=== PATIENT | male | born 1985 | race Caucasian/White ===

== ENCOUNTER 2018-11-17 04:52 | Emergency (ER) | payer OTHER ==
[~2018-11-17] VITALS: Ht 172.7 cm; Wt 63.5 kg
--- NOTE | 2018-11-17 05:05 | NUR ---
BIBSELF FROM HOME. AAOX4. BREATHING EVEN AND UNLABORED. PT IS ANXIOUS. AMBULATORY. C/O RACING HEART RATE FEELING OF PALPITATION. DENIES CP. -N/V/D. PT REPORTS OF TAKING XANAX.05 MG PO 30MIN AGO PRIOR TO ARRIVAL. PT TO ER BED 9. MD AT BEDSIDE FOR EVAL.
[2018-11-17] MEDS ORDERED: LORAZEPAM 1 MG TABLET ONE (05:27)
[2018-11-17] MEDS ORDERED: LORAZEPAM 1 MG TABLET PO ONE ×2 (05:30→06:00)
[2018-11-17 05:41] VITALS: BP 121/84
== END 2018-11-17 05:42 | disposition home or self-care (01) ==
LOC: ER 04:55
DX: F41.9 Anxiety disorder, unspecified (principal)